=== PATIENT | male | born 1945 | race Asian ===

== ENCOUNTER → 2017-02-19 | Day surgery (SDC) | payer MEDICAID ==
[~2017-02-19] MED LIST: AMLO2.5T PO; CHLORHEXIDINE GLUCONATE 2 % 1 PACK (2 CLOTHS) TOPICAL PRN; CIPROFLOXACIN/DEXT 400 MG/200 ML IV PRN; INSULIN HUMAN REGULAR 1,000 UNITS/10 ML VIAL SQ PRN; LACTATED RINGER'S 1000 ML IV PRN; METF500T PO; METOPROLOL TARTRATE 25 MG TAB PO PRN; POVIDONE IODINE 5% (ANTISEPSIS KIT) 4 APPLICATIONS EACH NARE PRN; SODIUM CHLORID 0.9% 500 ML IV PRN
[2017-02-19 08:01] LABS: AUTOMATED NEUTROPHIL # 7.1 TH/MM3 (1.8-7.7); BASOPHIL # 0.1 TH/MM3 (0-0.2); BASOPHIL % 0.5 % (0.0-2.0); EOSINOPHIL # 1.6 TH/MM3 (0-0.4); EOSINOPHIL % 13.6 % (0.0-4.0); HEMO FLAGS DIFF FINAL; LYMPH % 19.1 % (9.0-44.0); LYMPHOCYTE # 2.2 TH/MM3 (1.0-4.8); MEAN CELL VOLUME 86.8 FL (80.0-100.0); MEAN CORPUSCULAR HEMOGLOBIN 29.1 PG (27.0-34.0); MEAN CORPUSCULAR HGB CONC 33.5 % (32.0-36.0); MONO % 5.5 % (0.0-8.0); NEUT % 61.3 % (16.0-70.0); PLATELET COUNT 273 TH/MM3 (150-450); RED BLOOD COUNT 5.19 MIL/MM3 (4.50-5.90); RED CELL DISTRIBUTION WIDTH 13.2 % (11.6-17.2); WHITE BLOOD COUNT 11.7 TH/MM3 (4.0-11.0)
--- NOTE | 2017-02-19 10:31 | EKG ---
Date Performed: 02/19/2017 Time Performed: 07:21:09 PTAGE: 71 years EKG: Sinus rhythm NONSPECIFIC T-WAVE ABNORMALITY BORDERLINE ECG NO PREVIOUS TRACING DOCTOR: Vicente Salazar Interpretating Date/Time 02/19/2017 10:29:21
== END | disposition home or self-care (01) ==
LOC: HROP 06:38
PROVIDERS: ATTEND Urology
DX: R97.20 Elevated prostate specific antigen [PSA] (principal); Z01.810 Encounter for preprocedural cardiovascular examination; Z53.09 Procedure and treatment not carried out because of other contraindication
CPT/HCPCS: 85025; 93005; 99211; G0463

== ENCOUNTER → 2017-04-05 | Day surgery (SDC) | payer MEDICAID ==
[~2017-04-05] VITALS: Ht 160 cm; Wt 56.9 kg
[~2017-04-05] MED LIST changes: +BUPIVACAINE HCL PF 0.25% 30 ML VIAL ONE; -CIPROFLOXACIN/DEXT 400 MG/200 ML IV PRN; +LIDOCAINE 1%/EPINEPHrine 1:100,000 SOLN 20 ML VIAL ONE; +LIDOCAINE HCL 1% 50 ML VIAL ONE; +LIDOCAINE HCL 2% JELLY 5 ML SYRINGE ONE; +MULTTAB67 PO; +PROPOFOL 200 MG/20 ML AMP IV ONE
--- NOTE | 2017-04-05 07:59 | EKG ---
Date Performed: 04/05/2017 Time Performed: 07:52:33 PTAGE: 71 years EKG: Sinus rhythm NORMAL ECG No significant change from prior electrocardiogram. PREVIOUS TRACING : 02/19/2017 07.21 DOCTOR: Vicente Salazar Interpretating Date/Time 04/05/2017 07:58:35
[2017-04-05 08:09] VITALS: BP 158/83; PULSE 64; RESP 16; TEMP 98.1; O2SAT 96
[2017-04-05 08:15] LABS: AUTOMATED NEUTROPHIL # 7.6 TH/MM3 (1.8-7.7); BASOPHIL # 0.1 TH/MM3 (0-0.2); BASOPHIL % 0.8 % (0.0-2.0); EOSINOPHIL # 1.9 TH/MM3 (0-0.4); EOSINOPHIL % 14.5 % (0.0-4.0); HEMATOCRIT 45.1 % (39.0-51.0); HEMO FLAGS DIFF FINAL; LYMPH % 19.6 % (9.0-44.0); LYMPHOCYTE # 2.5 TH/MM3 (1.0-4.8); MEAN CELL VOLUME 87.1 FL (80.0-100.0); MEAN CORPUSCULAR HEMOGLOBIN 30.2 PG (27.0-34.0); MEAN CORPUSCULAR HGB CONC 34.7 % (32.0-36.0); MONO % 5.4 % (0.0-8.0); NEUT % 59.7 % (16.0-70.0); PLATELET COUNT 252 TH/MM3 (150-450); RED BLOOD COUNT 5.18 MIL/MM3 (4.50-5.90); RED CELL DISTRIBUTION WIDTH 13.2 % (11.6-17.2); WHITE BLOOD COUNT 12.8 TH/MM3 (4.0-11.0)
[2017-04-05] MEDS: CIPROFLOXACIN/DEXT 400 MG/200 ML IV SCH ×2 (09:06→09:27)
[2017-04-05 10:45] VITALS: BP 154/84; PULSE 80; RESP 16; TEMP 97.7; O2SAT 100
--- NOTE | 2017-04-05 10:51 | PD.OP ---
Operative Report Date of Surgery: Apr 05, 2017 Preoperative Diagnosis: Prostate cancer on watchful waiting Postoperative Diagnosis: Same Procedure: Transrectal ultrasound and prostate needle biopsy Anesthesia: Mac Surgeon: Norberto Burnham Chief Service Dispatcher(s): None Resident Surgeon: None Operation and Findings: 71-year-old male with history of [place] 4 prostate cancer who has been on watchful waiting since 2013. His PSA has been in the 19 range and over the last 3 years has increased to 29. The patient presently does not 1 any intervention for his prostate cancer has been feeling well. He is here today to undergo prostate needle biopsy with transrectal ultrasound. Risk and benefits were discussed and he is willing to proceed. The patient was brought to operating room and identified by myself as Yari Gagnon. He was placed on the stretcher in the left lateral recumbent position. The bedside enema was given. He received preprocedure antibiotics and Mac anesthesia was administered. Transrectal ultrasound of the prostate was performed demonstrating no evidence of any hypoechoic lesions. His prostate volume was noted to be 35.56 cm. 12 core prostate needle biopsies were taken and he tolerated the procedure well. He was awoken and transferred to the recovery room in stable condition. He will follow-up in the office in one month to review his pathology results. Norberto Burnham DO Apr 05, 2017 10:50
== END | disposition home or self-care (01) ==
LOC: HSDC 07:17
PROVIDERS: ATTEND Urology
DX: C61 Malignant neoplasm of prostate (principal); Z01.810 Encounter for preprocedural cardiovascular examination; Z01.818 Encounter for other preprocedural examination; I10 Essential (primary) hypertension
CPT/HCPCS: 00400; 55700; 85025; 88305; 93005; J0744; J7120